=== PATIENT | female | born 1985 | race Caucasian/White ===

== ENCOUNTER 2022-04-13 07:56 | Outpatient (CLI) | payer BC | END 2022-04-13 07:57 | disposition home or self-care (01) | LOC: CSHMAMMO 07:56 | PROVIDERS: ATTEND Family Medicine | DX: Z12.31 Encounter for screening mammogram for malignant neoplasm of breast (principal); Z98.890 Other specified postprocedural states; Z80.3 Family history of malignant neoplasm of breast | CPT/HCPCS: 77063; 77067 ==